=== PATIENT | male | born 1970 | race Caucasian/White ===

== ENCOUNTER 2016-10-20 22:27 | Emergency (ER) | payer MEDICARE ==
[~2016-10-20] VITALS: Ht 167.6 cm; Wt 82.1 kg
[2016-10-20 22:28] VITALS: BP 153/96
[2016-10-20] MEDS ORDERED: LIDOCAINE 1%, 20ML INFIL ONE (23:00)
[2016-10-20] MEDS ORDERED: LIDOCAINE 1%, 20ML ONE (23:12)
[2016-10-20] MEDS ORDERED: BACITRACIN ZINC OINT 500U/GM, 0.9 GM ONE (23:37)
== END 2016-10-20 23:57 | disposition home or self-care (01) ==
LOC: ED 23:54
DX: S01.411A Laceration without foreign body of right cheek and temporomandibular area, initial encounter (principal); Y04.0XXA Assault by unarmed brawl or fight, initial encounter; Y93.89 Activity, other specified; Y92.89 Other specified places as the place of occurrence of the external cause; Y99.9 Unspecified external cause status
CPT/HCPCS: 12014; 99283

== ENCOUNTER 2017-12-30 15:38 | Emergency (ER) | payer MEDICARE ==
[~2017-12-30] VITALS: Ht 165.1 cm; Wt 82.1 kg
[2017-12-30 15:57] VITALS: BP 134/91
[2017-12-30] MEDS ORDERED: METHOCARBAMOL 750 MG TABLET PO ONE (16:30)
[2017-12-30] MEDS ORDERED: KETOROLAC 30 MG/1 ML IM ONE (16:30)
[2017-12-30] MEDS ORDERED: METHOCARBAMOL 750 MG TABLET ONE (16:41)
[2017-12-30] MEDS ORDERED: KETOROLAC 30 MG/1 ML ONE (16:41)
== END 2017-12-30 17:29 | disposition home or self-care (01) ==
LOC: ED 16:50
DX: M54.5 Low back pain (principal)
CPT/HCPCS: 96372; 99283; J1885

== ENCOUNTER → 2018-01-30 | Outpatient (CLI) | payer MEDICARE | END | disposition home or self-care (01) | LOC: CFH 08:30 | PROVIDERS: ATTEND Student in an Organized Health Care Education/Training Program | DX: M51.26 Other intervertebral disc displacement, lumbar region (principal) | CPT/HCPCS: 72148 ==